=== PATIENT | male | born 1975 | race Caucasian/White ===

== ENCOUNTER 2017-12-29 08:31 | Inpatient (IN) | payer OTHER ==
[2017-12-29 09:52] VITALS: BMI 31.4
--- NOTE | 2017-12-29 09:58 | HP ---
CIWA Score - CIWA Score Nausea/Vomitin-No Nausea/No Vomiting Muscle Tremors: 3 Anxiety: 0-No Anxiety, at Ease Agitation: 1-Slight > Activity Paroxysmal Sweats: No Perspiration Orientation: 0-Oriented Tacttile Disturbances: 0-None Auditory Disturbances: 0-None Visual Disturbances: 2-Mild Sensitivity Headache: 0-None Present CIWA-Ar Total Score: 6 Admission ROS BHS - HPI Allergies/Adverse Reactions: Allergies Allergy/AdvReac Type Severity Reaction Status Date / Time No Known Allergies Allergy Verified 12/29/17 09:50 History of Present Illness: pt here requesting detox from etoh use , reports 3 pints/day , reports symptoms if not drinking i.e. diarrhea , dry heaves , difficulty swallowing , sweating , most recent detox 1 mo ago @ [facility] , reports heavy drinking x 1 week , first age of use 13 , progressively increased in the last 2 years , has had DWI x 2 most recently 2014 . Denies seizures, + blackouts , + tremors , reports he starts drinking upon awakening , + falls while intoxicated , most recently sunday into , fell and hit his knees. . Yasmine 0.000 , latest use yesterday 2 pm . utox + THC, + BZO pmhx: htn pshx : ear tubes , ventral hernia psych : denies meds : hctz latest filled rx 1 mo ago, has not taken since Sunday tobacco : denies Exam Limitations: No Limitations - Review of Systems Constitutional: No Symptoms Reported EENT: reports: Difficulty Swallowing Respiratory: reports: No Symptoms reported Cardiac: reports: No Symptoms Reported GI: reports: Diarrhea, Difficulty Swallowing : reports: No Symptoms Reported Musculoskeletal: reports: No Symptoms Reported Integumentary: reports: Other (abrasiona curt knees - [place] the park, fell wjhile intoxicated) Neuro: reports: No Symptoms reported Endocrine: reports: No Symptoms Reported Hematology: reports: No Symptoms Reported Psychiatric: reports: No Sypmtoms Reported, Judgement Intact, Orientated x3 Other Systems: Reviewed and Negative Patient History - Smoking Cessation Smoking history: Never smoked Family Disease History - Family Disease History Family History: Unable to Obtain (pt reports he was adopted) Admission Physical Exam [facility] - Physical General Appearance: Yes: Nourished, Appropriately Dressed, Disheveled, Other ( evasive) HEENTM: Yes: Hearing grossly Normal, Normocephalic, Normal Voice Respiratory: Yes: Chest Non-Tender, Lungs Clear, Normal Breath Sounds, No Respiratory Distress, No Accessory Muscle Use Neck: Yes: No masses,lesions,Nodules, Trachea in good position Breast: Yes: Breast Exam Deferred Cardiology: Yes: Regular Rhythm, Regular Rate Abdominal: Yes: Normal Bowel Sounds, Non Tender, Flat, Soft Genitourinary: Yes: Within Normal Limits Back: Yes: Normal Inspection Musculoskeletal: Yes: full range of Motion, Gait Steady, Pelvis Stable Extremities: Yes: Normal Capillary Refill, Normal Inspection, Normal Range of Motion, Non-Tender, Tremors Neurological: Yes: Fully Oriented, Alert, Motor Strength 5/5, Normal Mood/Affect , Normal Response Integumentary: Yes: Normal Color, Dry, Warm, Other (curt knees excoriations) Lymphatic: Yes: Within Normal Limits - Diagnostic (1) Alcohol withdrawal Current Visit: Yes Status: Acute Qualifiers: Complication of substance-induced condition: uncomplicated Qualified Code(s ): F10.230 - Alcohol dependence with withdrawal, uncomplicated
[2017-12-29] MEDS ORDERED: guaiFENesin/D-METHORPHAN HB 10 ML UNIT-DOSE CUPS PO PRN (10:05)
[2017-12-29] MEDS ORDERED: MAGNESIUM CITRATE 300 ML BOTTLE PO PRN (10:05)
[2017-12-29] MEDS ORDERED: MAGNESIUM HYDROX 2400MG/30ML ORAL SUSPENSION 30 ML CUP PO PRN (10:05)
[2017-12-29] MEDS ORDERED: IBUPROFEN 400 MG TABLET (FP) PO PRN (10:05)
[2017-12-29] MEDS ORDERED: MENTHOL/PHENOL 1 EACH UD MM PRN (10:05)
[2017-12-29] MEDS ORDERED: ACETAMINOPHEN 325 MG TABLET (FP) PO PRN (10:05)
[2017-12-29] MEDS ORDERED: P-EPHED 60MG/TRIPROLIDI 2.5MG TABLET PO PRN (10:05)
[2017-12-29] MEDS ORDERED: cloNIDine HCL 0.1 MG TABLET PO PRN (10:07)
[2017-12-29] MEDS: diazePAM 5 MG TABLET PO SCH ×2 (14:29→22:09)
[2017-12-29 18:57] LABS: URINE APPEARANCE SLCLOUDY; URINE BILIRUBIN NEGATIVE (<2.0 mg/dL); URINE COLOR YELLOW; URINE GLUCOSE (UA) NEGATIVE (NEGATIVE); URINE KETONE NEGATIVE (NEGATIVE); URINE LEUK ESTERASE NEGATIVE (NEGATIVE); URINE NITRITE NEGATIVE (NEGATIVE); URINE PROTEIN NEGATIVE (NEGATIVE); URINE UROBILINOGEN NEGATIVE mg/dL (0.2-1.0)
[2017-12-29] MEDS: MAG HYDROX/AL HYDROX/SIMETH 30 ML UNIT-DOSE CUP PO PRN (19:18)
[2017-12-29] MEDS: MELATONIN 5 MG TABLETS PO PRN (22:09)
[2017-12-29] MEDS: cloNIDine HCL 0.1 MG TABLET PO PRN (22:09)
[2017-12-29] MEDS: THIAMINE HCL 100 MG TABLET (FP) PO SCH (22:09)
[2017-12-30] MEDS: diazePAM 5 MG TABLET PO SCH ×3 (06:21→22:23)
[2017-12-30] MEDS: MAG HYDROX/AL HYDROX/SIMETH 30 ML UNIT-DOSE CUP PO PRN ×2 (09:34→23:51)
[2017-12-30] MEDS: PRENATAL VITAMINS W/ FOLIC ACID TABLET (FP) PO SCH (09:34)
[2017-12-30] MEDS: diazePAM 5 MG TABLET PO PRN ×2 (09:34→17:55)
--- NOTE | 2017-12-30 15:32 | PN ---
S CIWA - CIWA Score Nausea/Vomitin Muscle Tremors: 4-Moderate,w/Arms Extend Anxiety: 4-Mod. Anxious/Guarded Agitation: 4-Moderately Restless Paroxysmal Sweats: 3 Orientation: 0-Oriented Tacttile Disturbances: 0-None Auditory Disturbances: 0-None Visual Disturbances: 0-None Headache: 0-None Present CIWA-Ar Total Score: 17 BHS Progress Note (SOAP) Subjective: Interrupted sleep, diarrhea Objective: 12/30/17 15:27 Last Vital Signs Temp Pulse Resp BP Pulse Ox 96.9 F L 64 18 115/78 12/30/17 14:09 12/30/17 14:09 12/30/17 14:09 12/30/17 14:09 Laboratory Tests 12/29/17 14:21 Urine Color Yellow Urine Appearance Slcloudy Urine pH 9.0 H Ur Specific [place] 1.012 Urine Protein Negative Urine Glucose (UA) Negative Urine Ketones Negative Urine Blood Negative Urine Nitrite Negative Urine Bilirubin Negative Urine Urobilinogen Negative Ur Leukocyte Esterase Negative UA noted; admission labs not done Assessment: 12/30/17 15:29 Withdrawal sxs Plan: Continue detox Encouraged PO water intake Admission labs reordered for tomorrow at 0600 (CBC, CMP, RPR)
[2017-12-30] MEDS: MELATONIN 5 MG TABLETS PO PRN (22:23)
[2017-12-30] MEDS: cloNIDine HCL 0.1 MG TABLET PO PRN (22:23)
[2017-12-30] MEDS: THIAMINE HCL 100 MG TABLET (FP) PO SCH (22:23)
[2017-12-31] MEDS: PANTOPRAZOLE 40 MG TABLET (FP) PO SCH ×2 (01:26→10:36)
[2017-12-31 10:17] LABS: HEMATOCRIT 45.3 % (35.4-49); HEMOGLOBIN 15.2 GM/dL (11.7-16.9); MCH 28.7 pg (25.7-33.7); MCHC 33.5 g/dl (32.0-35.9); MEAN CELL VOLUME 85.7 fl (80-96); MEAN PLT VOLUME 7.8 fl (7.5-11.1); PLATELET COUNT 135 K/MM3 (134-434); RBC 5.29 M/mm3 (4.00-5.60); RDW 13.6 % (11.9-15.9); WHITE BLOOD COUNT 6.8 K/mm3 (4.0-10.0)
--- NOTE | 2017-12-31 10:19 | PN ---
S CIWA - CIWA Score Nausea/Vomitin Muscle Tremors: 2 Anxiety: 3 Agitation: 3 Paroxysmal Sweats: 1-Minimal Palms Moist Orientation: 0-Oriented Tacttile Disturbances: 1-Very Mild Itch/Numbness Auditory Disturbances: 0-None Visual Disturbances: 0-None Headache: 0-None Present CIWA-Ar Total Score: 12 BHS Progress Note (SOAP) Subjective: c/o acid reflux, interrupted sleep, chills Objective: 12/31/17 14:06 Vital Signs Temperature 98.2 F 12/31/17 13:22 Pulse Rate 69 12/31/17 13:22 Respiratory Rate 17 12/31/17 13:22 Blood Pressure 106/69 12/31/17 13:22 O2 Sat by Pulse Oximetry (%) Laboratory Last Values WBC 6.8 K/mm3 (4.0-10.0) 12/31/17 07:00 RBC 5.29 M/mm3 (4.00-5.60) 12/31/17 07:00 Hgb 15.2 GM/dL (11.7-16.9) 12/31/17 07:00 Hct 45.3 % (35.4-49) 12/31/17 07:00 MCV 85.7 fl (80-96) 12/31/17 07:00 MCH 28.7 pg (25.7-33.7) 12/31/17 07:00 MCHC 33.5 g/dl (32.0-35.9) 12/31/17 07:00 RDW 13.6 % (11.9-15.9) 12/31/17 07:00 Plt Count 135 K/MM3 (134-434) 12/31/17 07:00 MPV 7.8 fl (7.5-11.1) 12/31/17 07:00 Sodium 140 mmol/L (136-145) 12/31/17 07:00 Potassium 3.9 mmol/L (3.5-5.1) 12/31/17 07:00 Chloride 104 mmol/L (98-107) 12/31/17 07:00 Carbon Dioxide 28 mmol/L (21-32) 12/31/17 07:00 Anion Gap 8 MMOL/L (8-16) 12/31/17 07:00 BUN 14 mg/dL (7-18) 12/31/17 07:00 Creatinine 0.7 mg/dL (0.55-1.3) 12/31/17 07:00 Creat Clearance w eGFR > 60 (>60) 12/31/17 07:00 Random Glucose 95 mg/dL (74-106) 12/31/17 07:00 Calcium 9.2 mg/dL (8.5-10.1) 12/31/17 07:00 Total Bilirubin 0.8 mg/dL (0.2-1) 12/31/17 07:00 AST 36 U/L (15-37) 12/31/17 07:00 ALT 59 U/L (13-61) 12/31/17 07:00 Alkaline Phosphatase 51 U/L (45-117) 12/31/17 07:00 Total Protein 6.4 g/dl (6.4-8.2) 12/31/17 07:00 Albumin 3.4 g/dl (3.4-5.0) 12/31/17 07:00 Urine Color Yellow 12/29/17 14:21 Urine Appearance Slcloudy 12/29/17 14:21 Urine pH 9.0 (5.0-8.0) H 12/29/17 14:21 Ur Specific [place] 1.012 (1.010-1.035) 12/29/17 14:21 Urine Protein Negative (NEGATIVE) 12/29/17 14:21 Urine Glucose (UA) Negative (NEGATIVE) 12/29/17 14:21 Urine Ketones Negative (NEGATIVE) 12/29/17 14:21 Urine Blood Negative (NEGATIVE) 12/29/17 14:21 Urine Nitrite Negative (NEGATIVE) 12/29/17 14:21 Urine Bilirubin Negative (<2.0 mg/dL) 12/29/17 14:21 Urine Urobilinogen Negative mg/dL (0.2-1.0) 12/29/17 14:21 Ur Leukocyte Esterase Negative (NEGATIVE) 12/29/17 14:21 Aox3 no distress no adventitious breath sound s abd non tender, non-distended full ROM ambulating in the unit Assessment: 12/31/17 14:06 withdrawal sx Plan: increase fluids continue detox continue to monitor
[2017-12-31] MEDS: PRENATAL VITAMINS W/ FOLIC ACID TABLET (FP) PO SCH (10:36)
[2017-12-31] MEDS: diazePAM 5 MG TABLET PO SCH ×2 (10:36→23:52)
[2017-12-31 10:49] LABS: ALBUMIN 3.4 g/dl (3.4-5.0); ALK PHOS 51 U/L (45-117); ANION GAP 8 MMOL/L (8-16); BILIRUBIN,TOTAL 0.8 mg/dL (0.2-1); BLOOD UREA NITROGEN 14 mg/dL (7-18); CALCIUM 9.2 mg/dL (8.5-10.1); CHLORIDE 104 mmol/L (98-107); CO2 28 mmol/L (21-32); CREATININE 0.7 mg/dL (0.55-1.3); GLUCOSE,RANDOM 95 mg/dL (74-106); POTASSIUM 3.9 mmol/L (3.5-5.1); SGOT/AST 36 U/L (15-37); SGPT/ALT 59 U/L (13-61); SODIUM 140 mmol/L (136-145); TOT PROT 6.4 g/dl (6.4-8.2)
[2017-12-31] MEDS: MAG HYDROX/AL HYDROX/SIMETH 30 ML UNIT-DOSE CUP PO PRN (14:41)
[2017-12-31] MEDS: MELATONIN 5 MG TABLETS PO PRN (22:56)
[2017-12-31] MEDS: THIAMINE HCL 100 MG TABLET (FP) PO SCH (22:56)
[2018-01-01] MEDS: MAG HYDROX/AL HYDROX/SIMETH 30 ML UNIT-DOSE CUP PO PRN (00:24)
[2018-01-01] MEDS: diazePAM 5 MG TABLET PO SCH ×2 (10:34→22:12)
[2018-01-01] MEDS: PANTOPRAZOLE 40 MG TABLET (FP) PO SCH (10:35)
[2018-01-01] MEDS: PRENATAL VITAMINS W/ FOLIC ACID TABLET (FP) PO SCH (10:35)
--- NOTE | 2018-01-01 11:33 | PN ---
[facility] Progress Note Note: PATIENT TOLERATING DETOX WELL. STATES "I HAVE DIARRHEA BUT FEEL MUCH BETTER". Laboratory Tests 12/29/17 12/31/17 12/31/17 14:21 07:00 07:00 WBC 6.8 RBC 5.29 Hgb 15.2 Hct 45.3 MCV 85.7 MCH 28.7 MCHC 33.5 RDW 13.6 Plt Count 135 MPV 7.8 Sodium 140 Potassium 3.9 Chloride 104 Carbon Dioxide 28 Anion Gap 8 BUN 14 Creatinine 0.7 Creat Clearance w eGFR > 60 Random Glucose 95 Calcium 9.2 Total Bilirubin 0.8 AST 36 ALT 59 Alkaline Phosphatase 51 Total Protein 6.4 Albumin 3.4 Urine Color Yellow Urine Appearance Slcloudy Urine pH 9.0 H Ur Specific [place] 1.012 Urine Protein Negative Urine Glucose (UA) Negative Urine Ketones Negative Urine Blood Negative Urine Nitrite Negative Urine Bilirubin Negative Urine Urobilinogen Negative Ur Leukocyte Esterase Negative RPR Titer 12/31/17 07:00 WBC RBC Hgb Hct MCV MCH MCHC RDW Plt Count MPV Sodium Potassium Chloride Carbon Dioxide Anion Gap BUN Creatinine Creat Clearance w eGFR Random Glucose Calcium Total Bilirubin AST ALT Alkaline Phosphatase Total Protein Albumin Urine Color Urine Appearance Urine pH Ur Specific [place] Urine Protein Urine Glucose (UA) Urine Ketones Urine Blood Urine Nitrite Urine Bilirubin Urine Urobilinogen Ur Leukocyte Esterase RPR Titer Nonreactive Vital Signs Temperature 97.5 F L 01/01/18 10:01 Pulse Rate 62 01/01/18 10:01 Respiratory Rate 16 01/01/18 10:01 Blood Pressure 110/75 01/01/18 10:01 O2 Sat by Pulse Oximetry (%) SKIN WARM AND DRY CAR S1S2 RESP CTA BL EXT NO EDEMA, FULL ROM ALERT AND ORIENTED X 3 A/P; WITHDRAWAL SYNDROME CONTINUE DETOX ENCOURAGE ORAL FLUIDS CONTINUE TO MONITOR CLINICALLY
[2018-01-01] MEDS: THIAMINE HCL 100 MG TABLET (FP) PO SCH (22:12)
[2018-01-01] MEDS: MELATONIN 5 MG TABLETS PO PRN (22:12)
[2018-01-02 09:06] VITALS: BP 134/94; PULSE 87; TEMP 97.7
[2018-01-02] MEDS ORDERED: diazePAM 5 MG TABLET PO SCH (10:00)
--- NOTE | 2018-01-02 10:45 | DS ---
[facility] Detox Discharge Summary Admission Date: 12/29/17 Discharge Date: 01/02/18 - History Present History: Alcohol Dependence - Physical Exam Results Vital Signs: Vital Signs Temperature 97.7 F 01/02/18 09:06 Pulse Rate 87 01/02/18 09:06 Respiratory Rate 18 01/02/18 09:06 Blood Pressure 134/94 01/02/18 09:06 O2 Sat by Pulse Oximetry (%) Pertinent Admission Physical Exam Findings: PATIENT DISCHARGE TODAY. TOLERATED DETOX REGIMEN WITHOUT ADVERSE EFFECT. PATIENT ALERT AND ORIENTED X 3, AMB AD MEGHNA. DENIES SI/HI. CLINICALLY STABLE. PATIENT ENCOURAGE TO ATTEND GROUP MEETINGS TO PREVENT RELAPSE AND TO SEEK MEDICAL ATTENTION IF WITHDRAWAL SYMPTOMS OCCUR. DISCHARGE INSTRUCTIONS PROVIDED TO PATIENT BY STAFF. - Treatment Hospital Course: Detox Protocol Followed, Detoxed Safely, Responded well, Discharged Condition Good - Medication Discharge Medications: Ambulatory Orders Hydrochlorothiazide 12.5 mg PO DAILY 12/29/17 - Diagnosis (1) Alcohol dependence with withdrawal, uncomplicated Current Visit: Yes Status: Resolved - AMA Did Patient Leave Against Medical Advice: No
== END 2018-01-02 09:13 | disposition home or self-care (01) | DRG 775 ==
LOC: YASAS 08:31 → Y3N 12:19
PROC: HZ2ZZZZ Detoxification Services for Substance Abuse Treatment (ICD-10-PCS; principal; 2017-12-29)
DX: F10.230 Alcohol dependence with withdrawal, uncomplicated (principal); I10 Essential (primary) hypertension
CPT/HCPCS: 36415; 80053; 81003; 85027; 86593; J0735